=== PATIENT | male | born 1985 | race Caucasian/White ===

== ENCOUNTER → 2021-03-28 | Outpatient (CLI) | payer BC, OTHER ==
[~2021-03-28] VITALS: Ht 180.3 cm; Wt 88.5 kg
[~2021-03-28] MED LIST: NEURONTIN 300M300 M2 PO; PROPECIA1 MG PO
[2021-03-28 10:50] VITALS: BP 119/87
--- NOTE | 2021-03-28 11:24 | NUR ---
Pain Clinic Assessment: 1. History of Osteoarthritis: Not Applicable History of Rheumatoid Arthritis: Not Applicable 2. Height: 5 ft. 11 in. 180.3 cm. Weight: 195.0 lb. oz. 88.452 kg. Patient's BMI: 27.2 3. Vital Signs: BP: 119/87 Pulse: 60 Resp: 14 Temp: 02 Sat: 99 ECG Mon: 4. Pain Intensity: 6 5. Fall Risk: Dizziness: N Needs help standing or walking: N Fallen in the last 3 months: N Fall risk comments: 6. Patient on Blood Thinner: None 7. History of Hypertension: N 8. Opioid Therapy greater than 6 weeks: N Opiate Contract Signed: 9. Risk Assessment Tool Provided: 10. Functional Assessment Tool: 11. Recreational Drug Use: Never Drug Type: Tobacco Use: Never Smoker Tobacco Type: Amount or Packs/day: How Many Years: Alcohol Use: Yes Frequency: Weekly Quant: 4
== END ==
LOC: PAIN 10:00
PROVIDERS: ATTEND Anesthesiology Pain Medicine
DX: M50.123 Cervical disc disorder at C6-C7 level with radiculopathy (principal)

== ENCOUNTER → 2021-04-11 | Outpatient (CLI) | payer BC, OTHER ==
[~2021-04-11] VITALS: Ht 180.3 cm; Wt 91.1 kg
[2021-04-11 09:28] VITALS: BP 127/95
--- NOTE | 2021-04-11 09:37 | NUR ---
Pain Clinic Assessment: 1. History of Osteoarthritis: Not Applicable History of Rheumatoid Arthritis: Not Applicable 2. Height: 5 ft. 11 in. 180.3 cm. Weight: 200.8 lb. oz. 91.082 kg. Patient's BMI: 28.0 3. Vital Signs: BP: 127/95 Pulse: 62 Resp: 16 Temp: 02 Sat: 97 ECG Mon: 4. Pain Intensity: 1-2 5. Fall Risk: Dizziness: N Needs help standing or walking: N Fallen in the last 3 months: N Fall risk comments: 6. Patient on Blood Thinner: None 7. History of Hypertension: N 8. Opioid Therapy greater than 6 weeks: N Opiate Contract Signed: 9. Risk Assessment Tool Provided: 10. Functional Assessment Tool: 11. Recreational Drug Use: Never Drug Type: Tobacco Use: Never Smoker Tobacco Type: Amount or Packs/day: How Many Years: Alcohol Use: Yes Frequency: Quant:
== END ==
LOC: PAIN 08:17
PROVIDERS: ATTEND Anesthesiology Pain Medicine
DX: M50.123 Cervical disc disorder at C6-C7 level with radiculopathy (principal); F10.10 Alcohol abuse, uncomplicated; Z79.899 Other long term (current) drug therapy